=== PATIENT | female | born 1985 | race Caucasian/White ===

== ENCOUNTER 2017-09-26 05:33 | Emergency (ER) | payer BC ==
[~2017-09-26] VITALS: Ht 180.3 cm; Wt 152.7 kg
[~2017-09-26 05:33] MED LIST: ATEN25TA PO; ATOR-2 PO; CHOL10003 PO; CLIN300C8 PO; LISI-167 PO; METH5TAB6 PO
[2017-09-26] MEDS ORDERED: SODIUM CHLORIDE 0.9% 1,000ML IVBOLUS ONE (06:00)
[2017-09-26] MEDS ORDERED: DIPHENHYDRAMINE 50 MG/ML, 1ML IVPush ONE (06:00)
[2017-09-26] MEDS ORDERED: SODIUM CHLORIDE FLUSH 10ML SYR IVF ONE (06:00)
[2017-09-26] MEDS ORDERED: METOCLOPRAMIDE 5 MG/ML, 2ML IVPush ONE ×2 (06:00→07:30)
[2017-09-26] MEDS ORDERED: KETOROLAC 30 MG/1 ML IVPush ONE (06:00)
[2017-09-26] MEDS ORDERED: KETOROLAC 30 MG/1 ML ONE (06:15)
[2017-09-26] MEDS ORDERED: DIPHENHYDRAMINE 50 MG/ML, 1ML ONE (06:15)
[2017-09-26] MEDS ORDERED: METOCLOPRAMIDE 5 MG/ML, 2ML ONE ×2 (06:15→07:16)
[2017-09-26 06:24] VITALS: BP 142/91
== END 2017-09-26 08:16 | disposition home or self-care (01) ==
LOC: ED 08:14
DX: G43.909 Migraine, unspecified, not intractable, without status migrainosus (principal); I10 Essential (primary) hypertension; Z90.49 Acquired absence of other specified parts of digestive tract
CPT/HCPCS: 96374; 96375; 96376; 99284; J1200; J1885; J2765; J7030